=== PATIENT | female | born 1960 | race Caucasian/White ===

== ENCOUNTER 2021-07-25 15:57 | Emergency (ER) | payer OTHER ==
[~2021-07-25] VITALS: Ht 162.6 cm; Wt 102.1 kg
[2021-07-25] MEDS ORDERED: ALBU90OI INH (16:38)
[2021-07-25] MEDS ORDERED: FLUT.05NI (16:39)
[2021-07-25] MEDS ORDERED: GABA300 PO (16:40)
[2021-07-25] MEDS ORDERED: IBUP400 PO (16:41)
[2021-07-25] MEDS ORDERED: LEVSOD75 PO (16:41)
[2021-07-25] MEDS ORDERED: PRAV20 PO (16:42)
[2021-07-25] MEDS ORDERED: LATUDA40 M1 PO (16:42)
[2021-07-25] MEDS ORDERED: PRAZ2 PO (16:42)
[2021-07-25] MEDS ORDERED: QUET200 PO (16:43)
[2021-07-25] MEDS ORDERED: IBUP600 PO (16:52)
[2021-07-25] MEDS ORDERED: LIDO700A20 TOP (16:52)
[2021-07-25] MEDS ORDERED: Norco 5-325 Ta1 EACH PO (16:52)
== END 2021-07-25 17:30 | disposition home or self-care (01) ==
LOC: ER 15:57
DX: S80.02XA Contusion of left knee, initial encounter (principal); F17.210 Nicotine dependence, cigarettes, uncomplicated; Z91.013 Allergy to seafood; Z79.899 Other long term (current) drug therapy; W22.8XXA Striking against or struck by other objects, initial encounter
CPT/HCPCS: 73562-LT; 96372; 99283-25; J1885

== ENCOUNTER 2021-10-25 18:57 | Emergency (ER) | payer OTHER ==
[~2021-10-25] VITALS: Ht 162.6 cm; Wt 110.7 kg
[~2021-10-25 18:57] MED LIST: ALBU90OI INH; FLUT.05NI; GABA300 PO; IBUP400 PO; IBUP600 PO; LATUDA40 M1 PO; LEVSOD75 PO; LIDO700A20 TOP; Norco 5-325 Ta1 EACH PO; PRAV20 PO; PRAZ2 PO; QUET200 PO
[2021-10-25] MEDS ORDERED: Percocet 5-3251 EACH PO (20:36)
== END 2021-10-25 21:39 | disposition home or self-care (01) ==
LOC: ER 18:57
DX: S05.11XA Contusion of eyeball and orbital tissues, right eye, initial encounter (principal); S60.221A Contusion of right hand, initial encounter; I10 Essential (primary) hypertension; F17.210 Nicotine dependence, cigarettes, uncomplicated; Z91.013 Allergy to seafood; Z79.899 Other long term (current) drug therapy; Y04.8XXA Assault by other bodily force, initial encounter
CPT/HCPCS: 70450; 73130; 99284-25; A9270

== ENCOUNTER 2021-11-01 11:13 | Emergency (ER) | payer OTHER ==
[~2021-11-01] VITALS: Ht 162.6 cm; Wt 110.7 kg
[~2021-11-01 11:13] MED LIST changes: +Percocet 5-3251 EACH PO
[2021-11-01] MEDS ORDERED: Norco 5-325 Ta1 EACH PO (11:33)
== END 2021-11-01 11:43 | disposition home or self-care (01) ==
LOC: ER 11:13
DX: S00.83XD Contusion of other part of head, subsequent encounter (principal); S00.431D Contusion of right ear, subsequent encounter; I10 Essential (primary) hypertension; Z91.013 Allergy to seafood; Z79.899 Other long term (current) drug therapy; F17.210 Nicotine dependence, cigarettes, uncomplicated
CPT/HCPCS: 99281

== ENCOUNTER 2022-04-11 14:42 | Emergency (ER) | payer OTHER ==
[~2022-04-11] VITALS: Ht 162.6 cm; Wt 124.7 kg
[~2022-04-11 14:42] MED LIST changes: +KLONOPIN0.5 M6 PO; +OMEP20ER PO
[2022-04-11] MEDS ORDERED: ZEBUTAL 50-3251 EAC1 PO (16:32)
[2022-04-11] MEDS ORDERED: PROM25 PO (16:32)
== END 2022-04-11 16:40 | disposition home or self-care (01) ==
LOC: ER 14:42
DX: R51.9 Headache, unspecified (principal); I10 Essential (primary) hypertension; E78.5 Hyperlipidemia, unspecified; Z87.891 Personal history of nicotine dependence; Z79.899 Other long term (current) drug therapy
CPT/HCPCS: 70450; J0780; J1200; J1885

== ENCOUNTER 2023-02-10 16:40 | Emergency (ER) | payer OTHER ==
[~2023-02-10] VITALS: Ht 162.6 cm; Wt 121.1 kg
[~2023-02-10 16:40] MED LIST changes: +PROM25 PO; +ZEBUTAL 50-3251 EAC1 PO
[2023-02-10 16:44] VITALS: BP 151/97
[2023-02-10] MEDS ORDERED: HYDR1TAB94 PO ×2 (17:25→17:28)
== END 2023-02-10 17:41 | disposition home or self-care (01) ==
LOC: ER 16:40
DX: M25.462 Effusion, left knee (principal); Z91.013 Allergy to seafood; Z79.899 Other long term (current) drug therapy; I10 Essential (primary) hypertension; E78.5 Hyperlipidemia, unspecified; F17.210 Nicotine dependence, cigarettes, uncomplicated
CPT/HCPCS: 73562-LT; 99283-25

== ENCOUNTER 2023-07-30 12:58 | Emergency (ER) | payer OTHER ==
[~2023-07-30] VITALS: Ht 162.6 cm; Wt 120.7 kg
[~2023-07-30 12:58] MED LIST changes: +CODEINE-GUAIFE120 M1 PO; +HYDR1TAB94 PO
[2023-07-30 13:39] LABS: BASOPHILS ABSOLUTE AUTO 0.03 K/mm3 (0.00-0.23); BASOPHILS PERCENT AUTO 0 % (0-2); EOSINOPHILS ABSOLUTE AUTO 0.02 K/mm3 (0.00-0.68); EOSINOPHILS PERCENT AUTO 0 % (0-6); Hematocrit 36.9 % (33.0-51.0); Hemoglobin 12.6 g/dL (11.5-16.0); IMMATURE GRAN ABSOLUTE AUTO 0.02 K/mm3 (0.00-0.10); IMMATURE GRAN PERCENT AUTO 0 % (0-1); LYMPHOCYTES ABSOLUTE AUTO 2.21 K/mm3 (0.84-5.20); LYMPHOCYTES PERCENT AUTO 33 % (21-46); MONOCYTES ABSOLUTE AUTO 0.96 K/mm3 (0.16-1.47); MONOCYTES PERCENT AUTO 14 % (4-13); Mean Corpuscular HGB 30.2 pg (26.0-34.0); Mean Corpuscular HGB Conc 34.1 g/dL (31.5-36.5); Mean Corpuscular Volume 89 fL (80-100); Mean Platelet Volume 10.5 fL (9.1-12.4); NEUTROPHILS ABSOLUTE AUTO 3.45 K/mm3 (1.96-9.15); NEUTROPHILS PERCENT AUTO 52 % (41-73); Platelet Count 183 K/mm3 (150-400); RDW Coefficient Variation 13.8 % (11.7-14.2); RDW Standard Deviation 44.5 fL (35.1-46.3); Red Blood Cell Count 4.17 M/mm3 (3.80-5.20); White Blood Cell Count 6.69 K/mm3 (4.00-11.30)
[2023-07-30 14:08] LABS: Albumin, Blood 3.6 g/dL (3.4-5.0); Albumin/Globulin Ratio 0.9 (0.8-1.8); Bilirubin, Total 0.3 mg/dL (0.1-1.0); Bun/Creatinine Ratio 11.5 (12.0-20.0); Calcium, Blood 8.3 mg/dL (8.5-10.1); Creatinine, Blood 1.13 mg/dL (0.40-1.00); Potassium, Blood 3.7 mmol/L (3.5-5.5); Total Protein, Blood 7.6 g/dL (6.4-8.2)
[2023-07-30 14:29] LABS: Influenza A, PCR NEGATIVE (NEGATIVE); Influenza B, PCR NEGATIVE (NEGATIVE); Resp Syncytial Virus, PCR NEGATIVE (NEGATIVE)
[2023-07-30 15:35] LABS: SARS-Cov-2 (COVID-19) PCR, MMC POSITIVE (NEGATIVE)
[2023-07-30 17:30] VITALS: BP 146/91
[2023-07-30] MEDS ORDERED: BENZ100A PO (17:41)
[2023-07-30] MEDS ORDERED: PRED20 PO (17:41)
[2023-07-30] MEDS ORDERED: PAXLOVID 150-11 EACH PO (18:42)
== END 2023-07-30 18:02 | disposition home or self-care (01) ==
LOC: ER 12:58
PROVIDERS: Student in an Organized Health Care Education/Training Program
DX: U07.1 COVID-19 (principal); J20.9 Acute bronchitis, unspecified; J44.1 Chronic obstructive pulmonary disease with (acute) exacerbation; I10 Essential (primary) hypertension; E78.5 Hyperlipidemia, unspecified; F17.210 Nicotine dependence, cigarettes, uncomplicated; Z91.013 Allergy to seafood; Z79.899 Other long term (current) drug therapy
CPT/HCPCS: 0241U; 71046; 80053; 85025; 93005; 93010; 94640; 94664; 99284-25; J7512

== ENCOUNTER 2023-08-12 10:38 | Emergency (ER) | payer OTHER ==
[~2023-08-12] VITALS: Ht 162.6 cm; Wt 120.7 kg
[~2023-08-12 10:38] MED LIST changes: +BENZ100A PO; +PAXLOVID 150-11 EACH PO; +PRED20 PO
[2023-08-12 10:49] VITALS: BP 124/96
[2023-08-12] MEDS ORDERED: Zithromax250 MG PO (12:08)
[2023-08-12] MEDS ORDERED: CODEINE-GUAIFE120 M1 PO (12:08)
== END 2023-08-12 12:28 | disposition home or self-care (01) ==
LOC: ER 10:38
DX: J44.1 Chronic obstructive pulmonary disease with (acute) exacerbation (principal); Z86.16 Personal history of COVID-19; Z91.013 Allergy to seafood; Z79.51 Long term (current) use of inhaled steroids; Z79.890 Hormone replacement therapy; Z79.899 Other long term (current) drug therapy; I10 Essential (primary) hypertension; Z87.891 Personal history of nicotine dependence
CPT/HCPCS: 71046; 99284-25

== ENCOUNTER 2023-12-13 14:02 | Emergency (ER) | payer OTHER ==
[~2023-12-13] VITALS: Ht 162.6 cm; Wt 118.8 kg
[~2023-12-13 14:02] MED LIST changes: +Zithromax250 MG PO
[2023-12-13 14:18] VITALS: BP 117/91
[2023-12-13] MEDS ORDERED: Ketorolac Tromethamine 30mg Vial IM ONE (15:00)
== END 2023-12-13 15:16 | disposition home or self-care (01) ==
LOC: ER 14:02
DX: S83.92XA Sprain of unspecified site of left knee, initial encounter (principal); X50.1XXA Overexertion from prolonged static or awkward postures, initial encounter; I10 Essential (primary) hypertension; J44.9 Chronic obstructive pulmonary disease, unspecified; E78.5 Hyperlipidemia, unspecified; Z87.891 Personal history of nicotine dependence; Z91.013 Allergy to seafood; Z79.899 Other long term (current) drug therapy; Z79.890 Hormone replacement therapy
CPT/HCPCS: 73562-LT; 96372; 99283-25; J1885

== ENCOUNTER 2024-04-12 16:11 | Emergency (ER) | payer OTHER ==
[~2024-04-12] VITALS: Ht 162.6 cm; Wt 121.6 kg
[2024-04-12 16:23] VITALS: BP 166/98
[2024-04-12] MEDS ORDERED: Norco 5-325 Ta1 EACH PO (17:54)
[2024-04-12] MEDS ORDERED: Ketorolac Tromethamine 30mg Vial IM ONE (18:05)
== END 2024-04-12 18:17 | disposition home or self-care (01) ==
LOC: ER 16:11
DX: S76.112A Strain of left quadriceps muscle, fascia and tendon, initial encounter (principal); E78.5 Hyperlipidemia, unspecified; I10 Essential (primary) hypertension; J44.9 Chronic obstructive pulmonary disease, unspecified; X50.0XXA Overexertion from strenuous movement or load, initial encounter; Z87.891 Personal history of nicotine dependence; Z79.899 Other long term (current) drug therapy; Z91.013 Allergy to seafood
CPT/HCPCS: 73562-LT; 96372; 99283-25; J1885

== ENCOUNTER 2024-06-19 16:15 | Emergency (ER) | payer OTHER ==
[~2024-06-19] VITALS: Ht 162.6 cm; Wt 119.8 kg
[2024-06-19 16:19] VITALS: BP 118/85
[2024-06-19 16:41] LABS: BASOPHILS ABSOLUTE AUTO 0.03 K/mm3 (0.00-0.23); BASOPHILS PERCENT AUTO 1 % (0-2); EOSINOPHILS ABSOLUTE AUTO 0.26 K/mm3 (0.00-0.68); EOSINOPHILS PERCENT AUTO 5 % (0-6); Hematocrit 35.7 % (33.0-51.0); Hemoglobin 12.1 g/dL (11.5-16.0); IMMATURE GRAN ABSOLUTE AUTO 0.02 K/mm3 (0.00-0.10); IMMATURE GRAN PERCENT AUTO 0 % (0-1); LYMPHOCYTES PERCENT AUTO 37 % (21-46); MONOCYTES ABSOLUTE AUTO 0.62 K/mm3 (0.16-1.47); MONOCYTES PERCENT AUTO 11 % (4-13); Mean Corpuscular HGB 29.5 pg (26.0-34.0); Mean Corpuscular HGB Conc 33.9 g/dL (31.5-36.5); Mean Corpuscular Volume 87 fL (80-100); Mean Platelet Volume 10.3 fL (9.1-12.4); NEUTROPHILS ABSOLUTE AUTO 2.66 K/mm3 (1.96-9.15); NEUTROPHILS PERCENT AUTO 47 % (41-73); Platelet Count 215 K/mm3 (150-400); RDW Coefficient Variation 14.1 % (11.7-14.2); RDW Standard Deviation 45.3 fL (35.1-46.3); White Blood Cell Count 5.69 K/mm3 (4.00-11.30)
[2024-06-19 17:02] LABS: Albumin, Blood 3.9 g/dL (3.4-5.0); Albumin/Globulin Ratio 1.1 (0.8-1.8); Bilirubin, Total 0.2 mg/dL (0.1-1.0); Bun/Creatinine Ratio 22.5 (12.0-20.0); Calcium, Blood 8.7 mg/dL (8.5-10.1); Creatinine, Blood 1.11 mg/dL (0.40-1.00); Globulin, Blood 3.7 g/dL (2.2-4.0); Potassium, Blood 4.1 mmol/L (3.5-5.5); Total Protein, Blood 7.6 g/dL (6.4-8.2)
[2024-06-19] MEDS ORDERED: BREO ELLIPTA 11 EAC1 PO (18:32)
[2024-06-19] MEDS ORDERED: RX Prepack Albuterol 1 PREPACK/6.7 GM INH UD ONE (18:35)
== END 2024-06-19 18:54 | disposition home or self-care (01) ==
LOC: ER 16:15
PROVIDERS: Physician Assistant
DX: R06.02 Shortness of breath (principal); I10 Essential (primary) hypertension; J44.9 Chronic obstructive pulmonary disease, unspecified; E78.5 Hyperlipidemia, unspecified; Z91.013 Allergy to seafood; Z79.899 Other long term (current) drug therapy; Z79.890 Hormone replacement therapy; Z87.891 Personal history of nicotine dependence
CPT/HCPCS: 71046; 80053; 83880; 85025; 93005; 93010; 99285-25; A9270

== ENCOUNTER 2024-08-01 07:25 | Emergency (ER) | payer OTHER ==
[~2024-08-01] VITALS: Ht 162.6 cm; Wt 110.2 kg
[~2024-08-01 07:25] MED LIST changes: +BREO ELLIPTA 11 EAC1 PO
[2024-08-01] MEDS ORDERED: HYDROmorphone HCl/Pf 1MG SYR IV ONE (08:10)
[2024-08-01] MEDS ORDERED: NS 1,000 ML IV SCH (08:10)
[2024-08-01] MEDS ORDERED: Ondansetron HCl 2 MG / ML 2ML Vial IV ONE (08:10)
[2024-08-01 09:10] LABS: BASOPHILS ABSOLUTE AUTO 0.04 K/mm3 (0.00-0.23); BASOPHILS PERCENT AUTO 1 % (0-2); EOSINOPHILS ABSOLUTE AUTO 0.16 K/mm3 (0.00-0.68); EOSINOPHILS PERCENT AUTO 3 % (0-6); Hematocrit 35.1 % (33.0-51.0); Hemoglobin 12.2 g/dL (11.5-16.0); IMMATURE GRAN ABSOLUTE AUTO 0.02 K/mm3 (0.00-0.10); IMMATURE GRAN PERCENT AUTO 0 % (0-1); LYMPHOCYTES ABSOLUTE AUTO 1.67 K/mm3 (0.84-5.20); LYMPHOCYTES PERCENT AUTO 28 % (21-46); MONOCYTES ABSOLUTE AUTO 0.66 K/mm3 (0.16-1.47); MONOCYTES PERCENT AUTO 11 % (4-13); Mean Corpuscular HGB 29.5 pg (26.0-34.0); Mean Corpuscular HGB Conc 34.8 g/dL (31.5-36.5); Mean Corpuscular Volume 85 fL (80-100); Mean Platelet Volume 10.9 fL (9.1-12.4); NEUTROPHILS ABSOLUTE AUTO 3.35 K/mm3 (1.96-9.15); NEUTROPHILS PERCENT AUTO 57 % (41-73); Platelet Count 256 K/mm3 (150-400); RDW Coefficient Variation 13.5 % (11.7-14.2); RDW Standard Deviation 41.9 fL (35.1-46.3); Red Blood Cell Count 4.13 M/mm3 (3.80-5.20)
[2024-08-01 09:29] LABS: Albumin, Blood 3.8 g/dL (3.4-5.0); Bilirubin, Total 0.4 mg/dL (0.1-1.0); Bun/Creatinine Ratio 12.9 (12.0-20.0); Calcium, Blood 9.1 mg/dL (8.5-10.1); Creatinine, Blood 1.16 mg/dL (0.40-1.00); Globulin, Blood 3.7 g/dL (2.2-4.0); Potassium, Blood 3.6 mmol/L (3.5-5.5); Total Protein, Blood 7.5 g/dL (6.4-8.2)
[2024-08-01 10:16] VITALS: BP 144/63
== END 2024-08-01 10:17 | disposition home or self-care (01) ==
LOC: ER 07:25
PROVIDERS: Emergency Medicine
DX: K80.20 Calculus of gallbladder without cholecystitis without obstruction (principal); I10 Essential (primary) hypertension; E78.5 Hyperlipidemia, unspecified; J45.909 Unspecified asthma, uncomplicated; Z87.891 Personal history of nicotine dependence; Z91.013 Allergy to seafood; Z79.51 Long term (current) use of inhaled steroids; Z79.899 Other long term (current) drug therapy
CPT/HCPCS: 71046; 76705; 80053; 83690; 84484; 85025; 93005; 93010; 96361; 96374; 96375; 99284-25; J1170; J2405; J7030

== ENCOUNTER 2024-11-11 15:40 | Emergency (ER) | payer OTHER ==
[~2024-11-11] VITALS: Ht 162.6 cm; Wt 100.7 kg
[2024-11-11 16:10] LABS: BASOPHILS ABSOLUTE AUTO 0.03 K/mm3 (0.00-0.23); BASOPHILS PERCENT AUTO 1 % (0-2); EOSINOPHILS ABSOLUTE AUTO 0.14 K/mm3 (0.00-0.68); EOSINOPHILS PERCENT AUTO 2 % (0-6); Hematocrit 35.6 % (33.0-51.0); Hemoglobin 12.1 g/dL (11.5-16.0); IMMATURE GRAN ABSOLUTE AUTO 0.01 K/mm3 (0.00-0.10); IMMATURE GRAN PERCENT AUTO 0 % (0-1); LYMPHOCYTES PERCENT AUTO 35 % (21-46); MONOCYTES ABSOLUTE AUTO 0.47 K/mm3 (0.16-1.47); MONOCYTES PERCENT AUTO 8 % (4-13); Mean Corpuscular HGB 29.4 pg (26.0-34.0); Mean Corpuscular Volume 86 fL (80-100); NEUTROPHILS ABSOLUTE AUTO 3.07 K/mm3 (1.96-9.15); NEUTROPHILS PERCENT AUTO 54 % (41-73); Platelet Count 233 K/mm3 (150-400); RDW Coefficient Variation 14.4 % (11.7-14.2); RDW Standard Deviation 45.4 fL (35.1-46.3); Red Blood Cell Count 4.12 M/mm3 (3.80-5.20); White Blood Cell Count 5.72 K/mm3 (4.00-11.30)
[2024-11-11 16:30] LABS: Albumin, Blood 3.4 g/dL (3.4-5.0); Bilirubin, Total 0.3 mg/dL (0.1-1.0); Bun/Creatinine Ratio 13.3 (12.0-20.0); Calcium, Blood 9.3 mg/dL (8.5-10.1); Creatinine, Blood 1.05 mg/dL (0.40-1.00); Globulin, Blood 3.5 g/dL (2.2-4.0); Potassium, Blood 3.4 mmol/L (3.5-5.5); Total Protein, Blood 6.9 g/dL (6.4-8.2)
[2024-11-11] MEDS ORDERED: Mag Hydrox/AL Hydrox/Simeth 30 ML UDC PO ONE (18:45)
[2024-11-11] MEDS ORDERED: Famotidine 10 MG/ML 2ML Vial IV ONE (18:45)
[2024-11-11] MEDS ORDERED: FAMO20 PO (20:15)
[2024-11-11 20:41] VITALS: BP 124/73
== END 2024-11-11 20:42 | disposition home or self-care (01) ==
LOC: ER 15:40
PROVIDERS: Student in an Organized Health Care Education/Training Program
DX: K80.20 Calculus of gallbladder without cholecystitis without obstruction (principal); I10 Essential (primary) hypertension; J44.89 Other specified chronic obstructive pulmonary disease; E78.5 Hyperlipidemia, unspecified; Z91.013 Allergy to seafood; Z79.899 Other long term (current) drug therapy; Z79.890 Hormone replacement therapy; Z87.891 Personal history of nicotine dependence
CPT/HCPCS: 71046; 76705; 80053; 83690; 84484; 85025; 93005; 93010; 96374; 99284-25; A9270

== ENCOUNTER → 2025-01-08 | Outpatient (CLI) | payer OTHER ==
[~2025-01-08] MED LIST changes: +ANORO ELLIPTA1 EACH INH; +BUPR150ER PO; +CELE100 PO; +ESGIC 50-325-41 EACH PO; +FAMO20 PO; +METF500 PO; +METO25ER PO; +Prozac40 MG; +QUET200; +TOPI50 PO; +Voltaren100 GM TOP
[2025-02-01 11:27] LABS: Stool Occult Bld Immuno 1 Negative (NEGATIVE)
== END ==
LOC: LAB 10:14 → LAB SHORT 10:14
PROVIDERS: Family Medicine
DX: D64.9 Anemia, unspecified (principal)
CPT/HCPCS: G0328

== ENCOUNTER 2025-01-17 12:12 | Observation (INO) | payer OTHER ==
[~2025-01-17] VITALS: Ht 162.6 cm; Wt 92.4 kg
[~2025-01-17 12:12] MED LIST changes: -ANORO ELLIPTA1 EACH INH; -BUPR150ER PO; -CELE100 PO; -ESGIC 50-325-41 EACH PO; -METF500 PO; -METO25ER PO; -Prozac40 MG; -QUET200; -TOPI50 PO; -Voltaren100 GM TOP
[2025-01-17] MEDS ORDERED: NS 1,000 ML IV SCH ×2 (12:35→15:55)
[2025-01-17 13:39] LABS: Albumin, Blood 3.4 g/dL (3.4-5.0); Albumin/Globulin Ratio 0.9 (0.8-1.8); Bilirubin, Total 0.2 mg/dL (0.1-1.0); Bun/Creatinine Ratio 14.3 (12.0-20.0); Calcium, Blood 8.9 mg/dL (8.5-10.1); Creatinine, Blood 0.98 mg/dL (0.40-1.00); Globulin, Blood 3.7 g/dL (2.2-4.0); Total Protein, Blood 7.1 g/dL (6.4-8.2)
[2025-01-17 15:54] LABS: BASOPHILS ABSOLUTE AUTO 0.03 K/mm3 (0.00-0.23); BASOPHILS PERCENT AUTO 1 % (0-2); EOSINOPHILS ABSOLUTE AUTO 0.17 K/mm3 (0.00-0.68); EOSINOPHILS PERCENT AUTO 3 % (0-6); Hematocrit 31.6 % (33.0-51.0); Hemoglobin 10.7 g/dL (11.5-16.0); IMMATURE GRAN ABSOLUTE AUTO 0.02 K/mm3 (0.00-0.10); IMMATURE GRAN PERCENT AUTO 0 % (0-1); LYMPHOCYTES ABSOLUTE AUTO 2.06 K/mm3 (0.84-5.20); LYMPHOCYTES PERCENT AUTO 41 % (21-46); MONOCYTES ABSOLUTE AUTO 0.42 K/mm3 (0.16-1.47); MONOCYTES PERCENT AUTO 8 % (4-13); Mean Corpuscular HGB 29.7 pg (26.0-34.0); Mean Corpuscular HGB Conc 33.9 g/dL (31.5-36.5); Mean Corpuscular Volume 88 fL (80-100); Mean Platelet Volume 10.8 fL (9.1-12.4); NEUTROPHILS ABSOLUTE AUTO 2.35 K/mm3 (1.96-9.15); NEUTROPHILS PERCENT AUTO 47 % (41-73); Platelet Count 197 K/mm3 (150-400); RDW Coefficient Variation 15.2 % (11.7-14.2); RDW Standard Deviation 49.4 fL (35.1-46.3); White Blood Cell Count 5.05 K/mm3 (4.00-11.30)
[2025-01-17] MEDS ORDERED: Acetaminophen 325 MG TABLET PO PRN (17:05)
[2025-01-17] MEDS ORDERED: Ondansetron 4 MG TAB PO PRN (17:05)
[2025-01-17] MEDS ORDERED: FLU VACC TS2024-25(6MOS UP)/PF 45 MCG/0.5 ML SYRINGE IM SCH (17:05)
[2025-01-17] MEDS ORDERED: ClonazePAM 0.5 MG Tab PO PRN (17:15)
[2025-01-17] MEDS ORDERED: Mometasone/Formoterol MDI 200/5 mcg 13 GM INH SCH (20:25)
[2025-01-17 20:58] VITALS: BP 111/76
[2025-01-17] MEDS ORDERED: Famotidine 20 MG Tab PO SCH (21:00)
[2025-01-17] MEDS ORDERED: QUEtiapine Fumarate 200 MG Tab PO SCH (21:00)
[2025-01-17] MEDS ORDERED: Pravastatin Sodium 20 MG Tab PO SCH (21:00)
[2025-01-17] MEDS ORDERED: Prazosin HCl 1 MG Cap PO SCH (21:00)
[2025-01-17] MEDS ORDERED: ANORO ELLIPTA1 EACH INH (22:11)
[2025-01-17] MEDS ORDERED: Voltaren100 GM TOP (22:11)
[2025-01-17] MEDS ORDERED: ESGIC 50-325-41 EACH PO (22:12)
[2025-01-17] MEDS ORDERED: GABA300 PO (22:13)
[2025-01-17] MEDS ORDERED: Prozac40 MG (22:15)
[2025-01-17] MEDS ORDERED: METF500 PO (22:16)
[2025-01-17] MEDS ORDERED: CELE100 PO (22:18)
[2025-01-17] MEDS ORDERED: TOPI50 PO (22:19)
[2025-01-17] MEDS ORDERED: QUET200 (22:19)
[2025-01-17] MEDS ORDERED: BUPR150ER PO (22:23)
--- NOTE | 2025-01-17 22:27 | NUR ---
@2050, PT ARRIVED TO THE MEDICAL FLOOR RM#[id number]. PT ARRIVED IN A W/C AND BROUGHT ALL HER BELONINGS WITH HER. PT DENIES HAVING WELDING TESTER, VAPES, OR CIGARETTES WITH HER. PT DENIES HAVING ANY OF HER HOME MEDICATIONS WITH HER. CHARGE NURSE MARIAJOSE STACK RN COMPLETED THE ADMISSION ASSESSMENT. SKIN CHECK WITH THIS APPLICATION DEVELOPMENT DIRECTOR. MEDICATION RECONCILIATION COMPLETED BY THIS APPLICATION DEVELOPMENT DIRECTOR. PT HAS A MEDICATION LIST ON A WRITTEN PAPER, WHICH THIS APPLICATION DEVELOPMENT DIRECTOR WENT THROUGH EACH MEDICATION WITH THE PT. PT REPORTS SHE REFILLS HER MEDICATIONS AT [facility] IN [place] PT REPORTS THAT SHE HAS HX OF SCHIZOPHRENIA, AND SEES A MENTAL HEALTH PROVIDER AT [facility] IN [place], [place]. 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 PT IS A/O X3-4, SBA TO THE RESTROOM. CONTINENT. IV @LFA. TELE: SR @76. PAIN 9/10 LEFT SIDE T/O THE BODY D/T REPORTS FALLING DOWN @HOME D/T EPISODE OF SYNCOPY. BED AT THE LOWEST POSITION, CALL LIGHT W/I REACH. PT IS ABLE TO MAKE HER NEEDS KNOWN. PT IS PLEASANT, AND COOPERATIVE WITH CARE. NO OTHER CONCERNS AT THIS TIME.
--- NOTE | 2025-01-18 02:12 | NUR ---
NEW T-ORDER RECEIVED FROM THE ON-CALL HOSPITALIST : FENTANYL 25-50MCG Q4HRS PRN. ENTERED TO [employer], SEE EMAR. NO ADDITIONAL NEW ORDERS AT THIS TIME.
[2025-01-18] MEDS ORDERED: FentaNYL Citrate 50 MCG/ML 2 ML Injection IV PRN (02:15)
[2025-01-18 02:42] VITALS: BP 100/73
[2025-01-18 05:42] LABS: BASOPHILS ABSOLUTE AUTO 0.02 K/mm3 (0.00-0.23); BASOPHILS PERCENT AUTO 0 % (0-2); EOSINOPHILS ABSOLUTE AUTO 0.22 K/mm3 (0.00-0.68); EOSINOPHILS PERCENT AUTO 4 % (0-6); Hematocrit 30.3 % (33.0-51.0); IMMATURE GRAN ABSOLUTE AUTO 0.02 K/mm3 (0.00-0.10); IMMATURE GRAN PERCENT AUTO 0 % (0-1); LYMPHOCYTES ABSOLUTE AUTO 2.22 K/mm3 (0.84-5.20); LYMPHOCYTES PERCENT AUTO 44 % (21-46); MONOCYTES ABSOLUTE AUTO 0.46 K/mm3 (0.16-1.47); MONOCYTES PERCENT AUTO 9 % (4-13); Mean Corpuscular HGB 29.4 pg (26.0-34.0); Mean Corpuscular Volume 89 fL (80-100); Mean Platelet Volume 10.6 fL (9.1-12.4); NEUTROPHILS ABSOLUTE AUTO 2.13 K/mm3 (1.96-9.15); NEUTROPHILS PERCENT AUTO 42 % (41-73); Platelet Count 186 K/mm3 (150-400); RDW Coefficient Variation 15.4 % (11.7-14.2); RDW Standard Deviation 50.3 fL (35.1-46.3); White Blood Cell Count 5.07 K/mm3 (4.00-11.30)
[2025-01-18] MEDS ORDERED: Levothyroxine Sodium 0.075 MG Tab PO SCH (06:00)
[2025-01-18 06:24] LABS: Magnesium, Blood 1.7 mg/dL (1.6-2.4)
[2025-01-18 06:32] LABS: Albumin, Blood 2.7 g/dL (3.4-5.0); Bilirubin, Total 0.4 mg/dL (0.1-1.0); Bun/Creatinine Ratio 12.4 (12.0-20.0); Calcium, Blood 8.2 mg/dL (8.5-10.1); Creatinine, Blood 1.05 mg/dL (0.40-1.00); Globulin, Blood 2.8 g/dL (2.2-4.0); Percent Saturation 28.3 % (15.0-50.0); Potassium, Blood 3.8 mmol/L (3.5-5.5); Thyroid Stimulating Hormone 9.83 uIU/mL (0.360-4.800); Total Protein, Blood 5.5 g/dL (6.4-8.2)
[2025-01-18 06:59] VITALS: BP 110/70
[2025-01-18] MEDS ORDERED: HYDROcodone 5-APAP 325 TAB PO PRN (11:20)
[2025-01-18 11:36] VITALS: BP 121/91
--- NOTE | 2025-01-18 15:03 | NUR ---
Pt. is awake in bed when she welcomes my visit. Pt. is pleasant. Facilitated a life review. Listen with empathy and a calming presence. Pt. displays evidence of trust. Pt. verbalized matters of esperanza and belief, but she also displayed evidence of mild confusion over the details. Pt. welcomed prayer. Prayed with the Pt. Pt. verbalized gratitude for the spiritual care visit.
[2025-01-18 15:25] VITALS: BP 128/72
--- NOTE | 2025-01-18 17:57 | NUR ---
SHIFT SUMMARY PATIENT A/OX4, ABLE TO MAKE NEEDS KNOWN. PLEASANT AND COOPERATIVE WITH CARE. PATIENT PARTICIPATED IN PT THIS AFTERNOON, AND STATED BECAME DIZZY WHILE AMBULATING THE HALLS. ZIOPATCH CARDIAC MONITORING APPLIED BY [facility] [place] FOR DISCHARGE OVER THE WEEKEND. PATIENT COMPLAINING OF PAIN TO LEFT SIDE R/T FALL AT HOME, TYLENOL INEFFECTIVE IN MANAGING PAIN. MD NOTIFIED AND NEW ORDER FOR NORCO ADMINISTERED PER DEC. PATIENT COMPLAINING OF PAIN TO PRIOR IV SITE, IV REMOVED AND NEW IV PLACED TO LEFT WRIST/HAND. NO OTHER CONCERNS AT THIS TIME.
[2025-01-18 19:38] VITALS: BP 120/81
[2025-01-19 00:10] VITALS: BP 98/69
[2025-01-19 00:20] VITALS: BP 104/64
[2025-01-19 03:53] VITALS: BP 100/62
[2025-01-19 05:30] LABS: Hematocrit 29.3 % (33.0-51.0); Hemoglobin 9.9 g/dL (11.5-16.0); Mean Corpuscular HGB 29.6 pg (26.0-34.0); Mean Corpuscular HGB Conc 33.8 g/dL (31.5-36.5); Mean Corpuscular Volume 88 fL (80-100); Mean Platelet Volume 10.7 fL (9.1-12.4); Platelet Count 184 K/mm3 (150-400); RDW Coefficient Variation 15.1 % (11.7-14.2); RDW Standard Deviation 48.5 fL (35.1-46.3); Red Blood Cell Count 3.34 M/mm3 (3.80-5.20)
[2025-01-19 05:53] LABS: Albumin, Blood 2.9 g/dL (3.4-5.0); Anion Gap 6 mmol/L (3-11); Blood Urea Nitrogen 19 mg/dL (8-24); CO2, Blood 26 mmol/L (21-32); Calcium, Blood 8.5 mg/dL (8.5-10.1); Chloride, Blood 112 mmol/L (98-108); Creatinine, Blood 0.95 mg/dL (0.40-1.00); Glomerular Filtration Rate 67 (60-); Glucose, Blood 99 mg/dL (70-99); Magnesium, Blood 1.9 mg/dL (1.6-2.4); Phosphorus, Blood 4.4 mg/dL (2.5-4.9); Potassium, Blood 4.3 mmol/L (3.5-5.5); Sodium, Blood 140 mmol/L (136-145)
--- NOTE | 2025-01-19 05:53 | NUR ---
SHIFT SUMMARY PT SLEPT LONG INTERVALS THROUGH THE NIGHT. OOB TO BATHROOM WITH SBA DUE TO HX OF SYNCOPE. PT DENIES FEELING DIZZY. MEDICATED X1 FOR C/O PAIN PER EMAR. RESEARCH DEVELOPMENT DIRECTOR CALLED X1 WITH 8 BEATS OF VTACH- PT WAS ASYMPTOMATIC, OTHERWISE TELE WITH SR. BED IN LOWEST POSITION, CALL LIGHT WITHIN REACH, SIDERAILS UP X2.
[2025-01-19 08:00] VITALS: BP 106/62
[2025-01-19] MEDS ORDERED: Metoprolol Succinate 25 MG TABCR PO SCH (09:00)
[2025-01-19] MEDS ORDERED: METO25ER PO (11:19)
[2025-01-19] MEDS ORDERED: HYDR1TAB94 PO (11:20)
--- NOTE | 2025-01-19 12:59 | NUR ---
DISCHARGE NOTE PATIENT A/OX4, ABLE TO MAKE NEEDS KNOWN. DISCHARGE MEDICATIONS FAXED TO [facility] PER PATIENT REQUEST. DISCHARGE MEDICATION CHANGES AND FOLLOW UP APPOINTMENTS DISCUSSED AND PATIENT AGREEABLE TO PLAN. PATIENT EDUCATED TO NOT DRIVE UNTIL SEEN BY PCP AND AGREEABLE. IV AND TELEMETRY REMOVED PRIOR TO DISCHARGE. PATIENT'S SISTER, RIVER, CAME TO BEDSIDE TO DRIVE PATIENT HOME. [employer] MON[employer] IN PLACE. PATIENT PROVIDED WITH HARD SCRIPT FOR NORCO. NO OTHER CONCERNS AT THIS TIME.
== END 2025-01-19 12:12 | disposition home health service (06) ==
LOC: ER 12:12 → MEDS 12:13
PROVIDERS: Internal Medicine; Student in an Organized Health Care Education/Training Program; ADMIT Student in an Organized Health Care Education/Training Program
DX: R55 Syncope and collapse (principal); R94.31 Abnormal electrocardiogram [ECG] [EKG]; I10 Essential (primary) hypertension; E78.5 Hyperlipidemia, unspecified; J44.9 Chronic obstructive pulmonary disease, unspecified; E03.9 Hypothyroidism, unspecified; D63.8 Anemia in other chronic diseases classified elsewhere; Z87.891 Personal history of nicotine dependence; Z79.899 Other long term (current) drug therapy
CPT/HCPCS: 36415; 71046; 80053; 80069; 82728; 83540; 83550; 83735; 84443; 84484; 85025; 85027; 93005; 93010; 93246; 93306; 94640; 94664; 94760; 96360; 96361; 96374; 97116; 97161; 99285-25; A9270; G0378; J3010; J7030

== ENCOUNTER 2025-06-04 15:53 | Emergency (ER) | payer OTHER ==
[~2025-06-04] VITALS: Ht 162.6 cm; Wt 113.4 kg
[~2025-06-04 15:53] MED LIST changes: +ANORO ELLIPTA1 EACH INH; +BUPR150ER PO; +CELE100 PO; +ESGIC 50-325-41 EACH PO; +FLONASE ALLERG9.9 M2 NS; +METF500 PO; +METO25ER PO; +Prozac40 MG; +Prozac40 MG PO; +QUET200; +TOPI50 PO; +Voltaren100 GM TOP
[2025-06-04 16:31] LABS: BASOPHILS ABSOLUTE AUTO 0.05 K/mm3 (0.00-0.23); BASOPHILS PERCENT AUTO 1 % (0-2); EOSINOPHILS ABSOLUTE AUTO 0.46 K/mm3 (0.00-0.68); EOSINOPHILS PERCENT AUTO 6 % (0-6); Hematocrit 32.0 % (33.0-51.0); Hemoglobin 10.6 g/dL (11.5-16.0); IMMATURE GRAN ABSOLUTE AUTO 0.06 K/mm3 (0.00-0.10); IMMATURE GRAN PERCENT AUTO 1 % (0-1); LYMPHOCYTES ABSOLUTE AUTO 3.21 K/mm3 (0.84-5.20); LYMPHOCYTES PERCENT AUTO 41 % (21-46); MONOCYTES ABSOLUTE AUTO 0.62 K/mm3 (0.16-1.47); MONOCYTES PERCENT AUTO 8 % (4-13); Mean Corpuscular HGB Conc 33.1 g/dL (31.5-36.5); Mean Corpuscular Volume 88 fL (80-100); NEUTROPHILS ABSOLUTE AUTO 3.38 K/mm3 (1.96-9.15); NEUTROPHILS PERCENT AUTO 43 % (41-73); NRBC ABSOLUTE 0.00 K/mm3 (0.00-0.02); NRBC Auto 0.0 /100 WBC (0.0-0.2); Platelet Count 235 K/mm3 (150-400); RDW Coefficient Variation 14.7 % (11.7-14.2); RDW Standard Deviation 47.6 fL (35.1-46.3)
[2025-06-04 16:52] LABS: Alanine Aminotransfer (ALT/SGP 47.0 U/L (12-78); Albumin, Blood 3.8 g/dL (3.4-5.0); Albumin/Globulin Ratio 1.0 (0.8-1.8); Anion Gap 9.0 mmol/L (3-11); Aspartate Aminotrans (AST/SGOT 38.0 U/L (12-37); Bilirubin, Total 0.3 mg/dL (0.1-1.0); Blood Urea Nitrogen 18.0 mg/dL (8-24); CO2, Blood 26.0 mmol/L (21-32); Calcium, Blood 8.8 mg/dL (8.5-10.1); Chloride, Blood 105.0 mmol/L (98-108); Creatinine, Blood 1.04 mg/dL (0.40-1.00); Globulin, Blood 3.7 g/dL (2.2-4.0); Glucose, Blood 101.0 mg/dL (70-99); Potassium, Blood 4.7 mmol/L (3.5-5.5); Sodium, Blood 135.0 mmol/L (136-145); Total Protein, Blood 7.5 g/dL (6.4-8.2)
[2025-06-04] MEDS ORDERED: Diabetic GuaiFENesin 100 MG/5 ML 5MLUDC PO ONE (18:35)
[2025-06-04] MEDS ORDERED: Loratadine 5 MG/5 ML 5MLUDC PO ONE (18:35)
[2025-06-04] MEDS ORDERED: Ipratropium/Albuterol SulF 2.5-0.5MG/3 ML Amp INH ONE (18:35)
[2025-06-04] MEDS ORDERED: BENZ100A PO (18:39)
[2025-06-04] MEDS ORDERED: GUAI600T33 PO (18:39)
[2025-06-04] MEDS ORDERED: IPRATROPIUM BRO15 ML (18:39)
[2025-06-04] MEDS ORDERED: Loratadine10 MG PO (18:39)
[2025-06-04 19:09] VITALS: BP 120/77
== END 2025-06-04 19:35 | disposition home or self-care (01) ==
LOC: ER 15:53
PROVIDERS: Student in an Organized Health Care Education/Training Program
DX: J06.9 Acute upper respiratory infection, unspecified (principal); J90 Pleural effusion, not elsewhere classified; D64.9 Anemia, unspecified; I10 Essential (primary) hypertension; E78.5 Hyperlipidemia, unspecified; J44.89 Other specified chronic obstructive pulmonary disease; Z87.891 Personal history of nicotine dependence; Z91.013 Allergy to seafood; Z79.890 Hormone replacement therapy; Z79.84 Long term (current) use of oral hypoglycemic drugs; Z79.899 Other long term (current) drug therapy
CPT/HCPCS: 71046; 80053; 83880; 84484; 85025; 93005; 93010; 99285-25; A9270

== ENCOUNTER 2025-08-16 10:05 | Emergency (ER) | payer OTHER ==
[~2025-08-16] VITALS: Ht 167.6 cm; Wt 108.9 kg
[~2025-08-16 10:05] MED LIST changes: +GUAI600T33 PO; +IPRATROPIUM BRO15 ML; +Loratadine10 MG PO
[2025-08-16] MEDS ORDERED: Ipratropium/Albuterol SulF 2.5-0.5MG/3 ML Amp INH ONE (10:30)
[2025-08-16 10:38] LABS: BASOPHILS ABSOLUTE AUTO 0.03 K/mm3 (0.00-0.23); BASOPHILS PERCENT AUTO 1 % (0-2); EOSINOPHILS ABSOLUTE AUTO 0.35 K/mm3 (0.00-0.68); EOSINOPHILS PERCENT AUTO 7 % (0-6); Hematocrit 32.8 % (33.0-51.0); Hemoglobin 10.9 g/dL (11.5-16.0); IMMATURE GRAN ABSOLUTE AUTO 0.02 K/mm3 (0.00-0.10); IMMATURE GRAN PERCENT AUTO 0 % (0-1); LYMPHOCYTES ABSOLUTE AUTO 1.97 K/mm3 (0.84-5.20); LYMPHOCYTES PERCENT AUTO 39 % (21-46); MONOCYTES ABSOLUTE AUTO 0.40 K/mm3 (0.16-1.47); MONOCYTES PERCENT AUTO 8 % (4-13); Mean Corpuscular HGB Conc 33.2 g/dL (31.5-36.5); Mean Corpuscular Volume 86 fL (80-100); NEUTROPHILS ABSOLUTE AUTO 2.30 K/mm3 (1.96-9.15); NEUTROPHILS PERCENT AUTO 45 % (41-73); NRBC ABSOLUTE 0.00 K/mm3 (0.00-0.02); NRBC Auto 0.0 /100 WBC (0.0-0.2); Platelet Count 197 K/mm3 (150-400); RDW Coefficient Variation 15.7 % (11.7-14.2); RDW Standard Deviation 49.6 fL (35.1-46.3)
[2025-08-16 11:02] LABS: Alanine Aminotransfer (ALT/SGP 64.0 U/L (12-78); Albumin, Blood 3.7 g/dL (3.4-5.0); Albumin/Globulin Ratio 1.2 (0.8-1.8); Anion Gap 8.0 mmol/L (3-11); Aspartate Aminotrans (AST/SGOT 38.0 U/L (12-37); Bilirubin, Total 0.3 mg/dL (0.1-1.0); Blood Urea Nitrogen 22.0 mg/dL (8-24); CO2, Blood 26.0 mmol/L (21-32); Calcium, Blood 8.2 mg/dL (8.5-10.1); Chloride, Blood 109.0 mmol/L (98-108); Creatinine, Blood 1.02 mg/dL (0.40-1.00); Globulin, Blood 3.1 g/dL (2.2-4.0); Glucose, Blood 129.0 mg/dL (70-99); Potassium, Blood 4.0 mmol/L (3.5-5.5); Sodium, Blood 139.0 mmol/L (136-145); Total Protein, Blood 6.8 g/dL (6.4-8.2)
[2025-08-16 12:13] LABS: Influenza A, PCR NEGATIVE (NEGATIVE); Influenza B, PCR NEGATIVE (NEGATIVE); Resp Syncytial Virus, PCR NEGATIVE (NEGATIVE); SARS-Cov-2 (COVID-19) PCR, MMC NEGATIVE (NEGATIVE)
[2025-08-16] MEDS ORDERED: Guaifenesin Wit10 ML PO (12:24)
[2025-08-16] MEDS ORDERED: Prednisone20 MG PO (12:24)
[2025-08-16 12:41] VITALS: BP 131/78
== END 2025-08-16 12:42 | disposition home or self-care (01) ==
LOC: ER 10:05
PROVIDERS: Emergency Medicine
DX: J44.9 Chronic obstructive pulmonary disease, unspecified (principal); I10 Essential (primary) hypertension; E78.5 Hyperlipidemia, unspecified; Z87.891 Personal history of nicotine dependence; Z88.8 Allergy status to other drugs, medicaments and biological substances; Z79.84 Long term (current) use of oral hypoglycemic drugs; Z79.2 Long term (current) use of antibiotics; Z79.899 Other long term (current) drug therapy
CPT/HCPCS: 71045; 80053; 83880; 84484; 85025; 87637; 93005; 93010; 99285-25; J7512